=== PATIENT | male | born 1960 | race Caucasian/White ===

== ENCOUNTER 2017-08-25 05:35 | Day surgery (SDC) | payer BC, OTHER ==
[~2017-08-25] VITALS: Ht 182.9 cm; Wt 94.8 kg
--- NOTE | ~2017-08-25 | O ---
[facility] [address] OPERATIVE REPORT Name: ADONIS CORDOVA Room #: 150-5 [facility]..#: [id number] Admission: 08/25/17 Attend Phys: Mark Brooke MD Discharge: Date of : 56 Report #: [id number] THIS REPORT FOR: //name// CC: Raul Brooke DATE OF SERVICE: 08/25/[address] Mark Brooke and Dr. Raul Torres. PREOPERATIVE DIAGNOSIS: Left inguinal hernia. POSTOPERATIVE DIAGNOSIS: Left inguinal hernia. PROCEDURE: Left inguinal hernia repair with Prolene hernia system mesh. SURGEON: Mark Brooke MD ANESTHESIA: Local IV sedation. DESCRIPTION OF PROCEDURE: The patient was brought to the operating room and placed on the operative table in the supine position. Sequential compression devices were in place for DVT prophylaxis. There was no indication for preoperative antibiotics. The patient underwent IV sedation. Left inguinal area was prepped and draped in a sterile fashion. Skin and subcutaneous tissue were then infiltrated with 0.5% Marcaine and 1% Xylocaine in a 1:1 mixture. Left inguinal skin incision was then performed using #10 scalpel blade. Hemostasis obtained using electrocautery as well as clamps and 2-0 chromic ties. The external oblique fascia was then identified and incised with a knife and opened with the Metzenbaum scissors. The ilioinguinal nerve was identified, dissected free and preserved. Cord was then elevated and held in place with a Jhonathan drain. Cremasteric muscle fibers were then split in the direction of their fibers using clamp and electrocautery. The cord was inspected. There was no evidence of any indirect inguinal hernia sac. The floor was then inspected and there was a moderate size direct inguinal hernia defect. The direct inguinal hernia sac was identified, dissected free and opened just above the level of the floor and reduced back through the floor into the preperitoneal space. An extended Prolene hernia system mesh was then inserted through the floor and the underlay patch was then deployed into the preperitoneal space. The connector was left in the floor and the overlay patch was deployed in the inguinal canal. The fascia was tightened around the connector using a running 2-0 Prolene two layer shouldice repair. The overlay patch was secured at the pubic tubercle using the same running 2-0 Prolene suture. The mesh was then secured superiorly at the connector using simple interrupted 2-0 Vicryl sutures. The mesh was split and wrapped around the cord, secured to the inguinal [address] [address] OPERATIVE REPORT Name: ADONIS CORDOVA Room #: 150-5 [facility] M.R.#: [id number] Admission: 08/25/17 Attend Phys: Mark Brooke MD Discharge: Date of : 56 Report #: [id number] ligament with simple interrupted 2-0 Vicryl suture. The cord and ilioinguinal nerve were then returned to the canal intact. The external oblique fascia was then closed using running 2-0 Vicryl suture. Felicia's fascia was then reapproximated using 3 simple interrupted 2-0 chromic sutures and the skin then closed with a running 4-0 subcuticular Vicryl stitch. The wound was then dressed with Mastisol, 1/2-inch Steri-Strips cut in half, Telfa, 4 x 4 gauze, sponge and tape. The patient was then taken to the recovery room awake, alert and in good condition. Estimated blood loss was approximately 5 mL. The patient tolerated the procedure well. All sponge, lap and instrument counts correct x 2. By: [id number] Mark Brooke MD /nt
[~2017-08-25 05:35] MED LIST: OMEPRAZOLE 20 M20 M1 PO; VITAMIN B-12500 MCG PO; VITAMINC500 PO
[2017-08-25 12:09] VITALS: BP 142/84
[2017-08-25] MEDS ORDERED: HYDROCODONE-AP1 EAC6 PO (15:56)
[2017-08-25 16:10] VITALS: BP 142/84
== END 2017-08-25 16:35 | disposition home or self-care (01) ==
LOC: OR 05:35 → TBA 05:35 → OR 09:15
DX: K40.90 Unilateral inguinal hernia, without obstruction or gangrene, not specified as recurrent (principal); K21.9 Gastro-esophageal reflux disease without esophagitis; Z98.890 Other specified postprocedural states; Z87.19 Personal history of other diseases of the digestive system; Z79.899 Other long term (current) drug therapy
CPT/HCPCS: 50010; 50101; 50386; 50417; 54111; 56524; 56525; 56526; 56528; 62110; 62850; 70005